=== PATIENT | male | born 1955 | race Caucasian/White ===

== ENCOUNTER 2019-03-06 12:14 | Emergency (ER) | payer BC ==
[2019-03-06 12:22] VITALS: BP 151/79; PULSE 78; RESP 18; TEMP 98
--- NOTE | 2019-03-06 12:53 | ED ---
Back Pain HPI - General Chief Complaint: Back Pain/Injury Stated Complaint: Back pain Time Seen by Provider: 03/06/19 12:25 Source: patient Limitations: no limitations - History of Present Illness Initial Comments: Patient is a 63-year-old male presenting to the emergency Department with complaints of right sciatic pain 1 month. Patient states he thinks the pain started after he was lifting heavy objects proximal a month ago. Patient states he did call his doctor down in [place] who gave him a prescription for PT. Patient has been going for approximately 2 weeks and although he states some improvement. He feels like the pain is not going away. Patient denies any falls or trauma to the back. Patient has had this pain before years ago. Patient states the pain is going through his right glue down his right leg and into his right toe. Patient also admits to numbness of his right lower leg and foot that is intermittent. Patient is currently taking meloxicam. Patient has no other complaints at this time. Patient denies fever, chills, saddle paresthesia, urinary or bowel troubles. Upon arrival to ER, vital signs stable. - Related Data Previous Rx's Medication Instructions Recorded Cyclobenzaprine [Flexeril] 5 mg PO BID #10 tablet 03/06/19 methylPREDNISolone [Medrol Dose 4 mg PO DIRECTED #1 pack 03/06/19 Pack] Allergies Allergy/AdvReac Type Severity Reaction Status Date / Time No Known Allergies Allergy Verified 03/06/19 12:22 Review of Systems ROS Statement: Those systems with pertinent positive or pertinent negative responses have been documented in the HPI. ROS Other: All systems not noted in ROS Statement are negative. Past Medical History Past Medical History: Hyperlipidemia, Osteoarthritis (OA) History of Any Multi-Drug Resistant Organisms: None Reported Past Surgical History: Back Surgery, Orthopedic Surgery Additional Past Surgical History / Comment(s): kidney stone nasel surg carpel tunnel Past Psychological History: No Psychological Hx Reported Smoking Status: Never smoker Past Alcohol Use History: None Reported Past Drug Use History: None Reported General Exam - General Exam Comments Initial Comments: GENERAL: Well-appearing, well-nourished and in no acute distress. HEAD: Atraumatic, normocephalic. EYES: Pupils equal round and reactive to light, extraocular movements intact, sclera anicteric, conjunctiva are normal. ENT: TMs normal, nares patent, oropharynx clear without exudates. Moist mucous membranes. NECK: Normal range of motion, supple without lymphadenopathy or JVD. LUNGS: Breath sounds clear to auscultation bilaterally and equal. No wheezes rales or rhonchi. HEART: Regular rate and rhythm without murmurs, rubs or gallops. ABDOMEN: Soft, nontender, normoactive bowel sounds. No guarding, no rebound. No masses appreciated. : Deferred EXTREMITIES: Pain with straight leg raise in the right side. Sensation equal and bilateral lower extremities. Patient's strength is 5 out of 5 in lower extremities. no pitting or edema. No clubbing or cyanosis. NEUROLOGICAL: Cranial nerves II through XII grossly intact. Normal speech, normal gait. PSYCH: Normal mood, normal affect. SKIN: Warm, Dry, normal turgor, no rashes or lesions noted. Limitations: no limitations Course Vital Signs 03/06/19 12:18 Temperature 98.0 F Pulse Rate 78 Respiratory 18 Rate Blood Pressure 151/79 O2 Sat by Pulse 99 Oximetry Medical Decision Making - Medical Decision Making Patient is a 63-year-old male presenting with right sciatica symptoms 1 month. Patient has been in physical therapy for about a week and a half but states he feels little improvement. Patient denies fever or chills. Patient denies any trauma to the back. He has had these type of symptoms years ago. Exam shows positive straight leg raise test on the right. Sensation and strength is normal. X-ray show no acute fractures dislocations. Discussed with patient that sciatica can take some time to calm down. Discussed that he should continue with physical therapy. He will be put on a short course of steroids as well as a few muscle relaxer to take at night. Patient will follow up with orthopedics if no improvement within 2 weeks. Patient is agreement with this plan of care. Return parameters were discussed with the patient he verbalizes understanding. Patient is stable for discharge. Case discussed with Dr. Kim. Disposition Clinical Impression: Right-sided low back pain with sciatica Disposition: HOME SELF-CARE Condition: Stable Instructions (If sedation given, give patient instructions): Sciatica (ED) Additional Instructions: Please return to the Emergency Department if symptoms worsen or any other concerns. Follow-up with orthopedics if no improvement in 1-2 weeks. Continue with physical therapy. Prescriptions: Cyclobenzaprine [Flexeril] 5 mg PO BID #10 tablet methylPREDNISolone [Medrol Dose Pack] 4 mg PO DIRECTED #1 pack Is patient prescribed a controlled substance at d/c from ED?: No Referrals: Bert Mendoza MD [Primary Care Provider] - 1-2 days
--- NOTE | 2019-03-06 13:04 | XR ---
EXAMINATION TYPE: XR lumbar spine 2 or 3V DATE OF EXAM: 03/06/2019 CLINICAL HISTORY: Right-sided back and gluteal pain TECHNIQUE: Frontal and lateral images of the lumbar spine are obtained. COMPARISON: None FINDINGS: There are 5 lumbar type vertebral bodies identified. The lumbar spine shows satisfactory alignment without evidence of acute fracture or dislocation. Vertebral body heights and disk space he ights are within normal limits. Small anterior osteophytes are seen with intervertebral disc space na rrowing at L5-S1 and mild facet arthropathy from L4 through S1. The overlying soft tissue appears un remarkable. IMPRESSION: No acute fracture or dislocation is seen in the lumbar spine. 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
== END 2019-03-06 13:20 | disposition home or self-care (01) ==
LOC: EC 12:14
DX: M54.41 Lumbago with sciatica, right side (principal); Z98.890 Other specified postprocedural states
CPT/HCPCS: 72100; 99283